=== PATIENT | female | born 1975 | race Caucasian/White ===

== ENCOUNTER 2016-10-27 20:35 | Emergency (ER) | payer BC, OTHER ==
[2016-10-27 20:44] VITALS: BP 90/46
--- NOTE | 2016-10-27 21:11 | ERNOTE ---
Upper Extremity HPI - Narrative Date of Service: 10/27/16 - General Extremities Pain Location: 2nd finger: right, 3rd finger: right, 4th finger: right Time Seen by Provider: 10/27/16 21:00 Source: patient, RN notes reviewed Exam Limitations: no limitations - Immun/Allergies/Home Medications Immunizations: IMMUNIZATION HX Immunizations Up to Date Yes History of Influenza Vaccine Yes Allergies/Adverse Reactions: Allergies Allergy/AdvReac Type Severity Reaction Status Date / Time No Known Allergies Allergy Unverified 10/27/16 20:44 Home Medications: HOME MEDICATIONS Multivitamin [One Daily Essential] 1 each PO DAILY 10/27/16 [Last Taken Unknown] - History of Present Illness Narrative: 41 y/o female ambulatory to the ED for an injury to her right 2nd, 3rd and 4th fingers that occurred this morning. She shut her fingers in a heavy wooden door. 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 She has not taken anything for pain. Occurred: this morning Location of Incident: other - parent's house Associated Symptoms: Denies: tingling, weakness, numbness distally Other Injuries: Reports: none Review of Systems - Review of Systems Constitutional: Present: no symptoms reported EYE: Present: no symptoms reported ENT: Present: no symptoms reported Respiratory: Present: no symptoms reported Cardiology: Present: no symptoms reported Gastrointestinal/Abdominal: Present: no symptoms reported Genitourinary: Present: no symptoms reported Musculoskeletal: Present: joint pain, joint swelling Skin: Absent: lesions, lumps, change in color Neurological: Present: See HPI Endocrine: Present: no symptoms reported Hematologic/Lymphatic: Present: no symptoms reported Psych: Present: no symptoms reported - Patient's Past Medical History Patient History - Medical: No pertinent hx Patient History - Cardiac/Respiratory: No pertinent hx Patient History - Cancer: No Hx of Cancer Patient History - Surgical Procedures: - Social History Living Situations: home Smoking Status: Never smoker Patient requests Smoking Cessation Consult: No Initiate information on Smoking Cessation: No Alcohol Use: none Drug Use: none - Immunizations Immunizations Up to Date: Yes History of Influenza Vaccine: Yes Physical Exam - Physical Exam General Appearance: Present: wd/wn, alert, no apparent distress Respiratory: Present: no respiratory distress, no accessory muscle use Cardiovascular/Chest: Present: normal peripheral pulses Peripheral Pulses: N=norm/S=strong/W=weak/B=bound/A=absent: Radial (R): Strong Extremity Exam: Present: normal except - - moderate edema to right 2nd, 3rd and 4th fingers, painful ROM, no ecchymosis or deformity, skin intact Neurological Exam: Present: alert, oriented, normal mood/affect, no motor/ sensory deficits Skin Exam: Present: normal color, warm/dry ED Progress - Vital Signs Patient's Vital Signs:: I have reviewed the patient's vital signs. Vital Signs: Vital Signs 10/27/16 20:35 Temperature 37 C Pulse Rate 60 Respiratory 18 Rate Blood Pressure 90/46 O2 Sat by Pulse 99 Oximetry - X-Ray X-Ray #1 X-Ray: hand - Right Interpretation: Interp. by me X-ray Comments: No acute osseous abnormality noted - Progress/Reassessment Chief Complaint: Upper Extremity Injury/Problem Progress:: Unchanged Departure Clinical Impression: Crushing injury of finger(s) Qualifiers: Encounter type: initial encounter Qualified Code(s): S67.10XA - Crushing injury of unspecified finger(s), initial encounter - Departure Disposition: Home self-care Condition: Good Instructions: Contusion, [id number] Additional Instructions: Ice, elevate Tylenol and/or ibuprofen if needed for pain Activity as tolerated Follow up for worsening or persistent symptoms
== END 2016-10-27 21:14 | disposition home or self-care (01) ==
LOC: ER 20:35
DX: S67.192A Crushing injury of right middle finger, initial encounter (principal); S67.194A Crushing injury of right ring finger, initial encounter; S67.196A Crushing injury of right little finger, initial encounter; W23.0XXA Caught, crushed, jammed, or pinched between moving objects, initial encounter